=== PATIENT | male | born 1980 | race Caucasian/White ===

== ENCOUNTER 2021-04-12 17:23 | Emergency (ER) | payer OTHER, SELFPAY ==
--- NOTE | ~2021-04-12 | US_ITS ---
EXAMINATION: US VENOUS ULTRASOUND WITH DOPPLER LOWER EXTREMITY, RIGHT CLINICAL INFORMATION: Right leg edema and swelling COMPARISON: None TECHNIQUE: Ultrasound of the deep veins is performed from the hip to the calf with compression sonography and color and pulse Doppler assessment. Spectral analysis with color-flow imaging is performed. FINDINGS: There is normal venous compression and respiratory variation and augmented flow. The visualized common femoral vein, superficial femoral vein, profunda femoral vein, popliteal vein, and the trifurcation region shows no evidence of deep venous thrombosis. There is no significant popliteal fossa cyst. If the patient's symptoms persist, followup ultrasound in 5 days 7 days might be of value to exclude proximal propagation from a non-visualized calf vein. US/US venous duplex LE RT IMPRESSION: No DVT demonstrated in the right lower extremity.
[2021-04-12 18:06] VITALS: BP 154/111; PULSE 99; RESP 18; TEMP 36.7; O2SAT 96; BMI 25.7
--- NOTE | 2021-04-12 21:23 | ED_ITS ---
HPI - General Adult General Chief complaint: General Medical Stated complaint: Spontaneous ecchymoses, edema Time Seen by Provider: 04/12/21 20:54 Source: patient and family Limitations: no limitations History of Present Illness HPI narrative: 39-year-old male with past medical history of Merlin's disease, polycystic kidney disease is here today for complaining of right lower extremity swelling and bruising. Patient has a history of left kidney removal. Patient reports that his right lower extremity has been swollen in the last few days. He noticed today ecchymosis to 3rd 4th and 5th toe. Patient reports that he has been trying to keep his feet up as much as possible. Patient denies any other symptoms. Denies any SOB, presyncope, syncope, PND. Related Data Allergies Allergy/AdvReac Type Severity Reaction Status Date / Time amoxicillin Allergy Rash Verified 04/12/21 21:22 codeine AdvReac Nausea Verified 04/12/21 21:22 Review of Systems Review of Systems: Constitutional : No Weight loss, No Fever, No Chills, No Night Sweats, No Fatigue, No Malaise ENT/Mouth : No Hearing loss, No Ear Pain, No Nasal Congestion, No Sinus Pain, No Hoarseness, No sore throat, No Rhinorrhea, No Swallowing Difficulty Eyes: No Eye Pain, No Swelling, No Redness, No Foreign Body, No Discharge, No Vision Changes Cardiovascular : No Chest Pain, No SOB, No Dyspnea on Exertion, No Orthopnea, No Edema, No Palpitations Respiratory : No Cough, No Sputum, No Wheezing, No Smoke Exposure, No Dyspnea Gastrointestinal : No Nausea, No Vomiting, No Diarrhea, No Constipation, No abdominal Pain, No Hematochezia, No Melena Genitourinary : no irregular bleeding, No Dysuria, No Urinary Frequency, No Hematuria, No Urinary Incontinence, No Urgency, No Flank Pain, No Urinary Flow Changes, No Hesitancy Musculoskeletal : No joint pain, No Myalgias, Joint Swelling right foot swelling Skin : No Skin Lesions, No rash Neuro : No Weakness, No Numbness, No Paresthesias, No Loss of Consciousness, No Dizziness, No Headache Psych : No Anxiety/Panic, No Depression, No SI/HI/AH/VH, No Social Issues, Heme/Lymph: No Bruising, No Bleeding,No Lymphadenopathy Endocrine : No Polyuria, No Polydipsia, No Temperature Intolerance Yes all other systems are reviewed and are negative PMFSH Social History Social History Advance Directives: No Advance Directives Information Provided: No Physical Exam Vital Signs: Vital Signs: Last Vital Signs Temp 98.3 F 04/12/21 21:36 Pulse 84 04/12/21 21:36 Resp 18 04/12/21 21:36 BP 165/95 H 04/12/21 21:36 Pulse Ox 93 04/12/21 21:36 Body Mass Index 25.7 Const: General: healthy appearing, no acute distress and well developed Nutritional Appearance: well nourished Orientation/consciousness: patient oriented x3 Neck: Neck: Yes normal visual inspection, Yes full ROM and Yes trachea midline Thyroid: Thyroid normal Resp: Auscultation: clear to auscultation bilaterally Cardio: Rate: regular rate Rhythm: regular rhythm GI: Inspection: Yes normal to inspection and No distended Palpation (GI): No hepatosplenomegaly present Auscultation: normal bowel sounds Skin: General skin exam: elasticity normal, turgor normal and dry skin Neuro: General: patient oriented x3 Extrem: Right lower extremity: foot (Swelling ecchymosis) Course Course Course Narrative: 41-year-old male with past medical history of Merlin disease, polycystic kidney disease is here today for right lower extremity swelling. Patient is has a swelling for the last few days. Today he noticed ecchymosis to 3rd 4th and 5th toe. Denies any other symptoms. Will check basic lab work as well as due venous Doppler to check for DVT. Patient verbalizes understanding and is agreeable to plan of care he was given the opportunity to ask questions and all questions answered Reevaluation(s) Reevaluation #1: Patient just remember that he did injured his right foot. Labs negative 1st leukocytosis. Patient's creatinine is 1.84. He reports that he has creatinine is creatinine chronically high. Awaiting for ultrasound Reevaluation #2: Ultrasound negative for DVT. Patient elevated his feet the whole time he was here and his edema decreased. 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 Patient will be encouraged to keep his feet up Medical Decision Making Lab Data Result diagrams: 04/12/21 21:28 04/12/21 21:28 Labs: Lab Results 04/12/21 04/12/21 Range/Units 21:28 21:28 WBC 8.0 (4.8-10.8) X10*3/uL RBC 4.71 (4.60-5.80) X10*6/uL Hgb 13.7 L (14.0-18.0) g/dl Hct 41.9 L (42-52) % MCV 89.0 (80-98) fL MCH 29.1 (27.0-33.0) pg MCHC 32.7 (31.0-36.0) g/dl RDW 12.9 (11.0-16.0) % Plt Count 255 (160-400) X10*3/uL MPV 9.6 (9.4-12.4) fL Immature Gran % (Auto) 0.9 H (0.0-0.4) % Neut % (Auto) 69.5 (45-73) % Lymph % (Auto) 17.4 L (20-40) % [place] % (Auto) 7.2 (2-11) % Eos % (Auto) 4.5 H (0-4) % Baso % (Auto) 0.5 (0-2) % Lymph # (Auto) 1.4 (1.2-4.9) X10*3/uL [place] # (Auto) 0.6 (0.1-1.2) X10*3/uL Eos # (Auto) 0.4 (0.0-0.4) X10*3/uL Baso # (Auto) 0.0 (0.0-0.2) X10*3/uL Abs Immat Gran (auto) 0.07 H (0.00-0.03) X10*3/uL Absolute Neuts (auto) 5.6 (2.0-8.3) X10*3/uL Absolute Nucleated RBC 0.000 (0.0-0.012) X10*3/uL Nucleated RBC % (auto) 0.0 (0.0-0.2) /100WBC Sodium 142 (135-145) mmol/L Potassium 4.8 (3.3-5.1) mmol/L Chloride 104 (96-108) mmol/L Carbon Dioxide 31 H (22-29) mmol/L Anion Gap 12 (12-20) BUN 20 H (9-16) mg/dL Creatinine 1.84 H (0.5-1.4) mg/dL Estim Creat Clear Calc 43.3 Estimated GFR 40 Random Glucose 101 (60-115) mg/dL Calcium 10.1 (8.4-10.2) mg/dL Imaging Data Venous US: Radiologist's impression: VENOUS DOPPLER OF RIGHT EXTREMITY FINDINGS: There is normal venous compression and respiratory variation and augmented flow. The visualized common femoral vein, superficial femoral vein, profunda femoral vein, popliteal vein, and the trifurcation region shows no evidence of deep venous thrombosis. There is no significant popliteal fossa cyst. If the patient's symptoms persist, followup ultrasound in 5 days 7 days might be of value to exclude proximal propagation from a non-visualized calf vein. US/US venous duplex LE RT IMPRESSION: No DVT demonstrated in the right lower extremity. Discharge Plan Discharge Clinical Impression: Edema leg Patient Disposition: Home, Self-Care Instructions: Leg Edema (ED) Additional Instructions: You were seen here today for increase right lower extremity edema. All your lab work was negative for any acute findings. Your creatinine level was 1.84. Please follow-up with your awning maker and installer. Please make sure you keep your feet up. Please be careful when ambulating to avoid injuries. Please follow-up with your primary care provider in 2-3 days. You may return to emergency department if your symptoms will get worse or if you experience any other concerning symptoms.
--- NOTE | 2021-04-12 21:27 | PC.NURSE ---
PT SITTING IN W/C AND REFUSING TO GET IN BED OR CHG INTO GOWN. PT'S FAMILY WITH PACING AND C/O WE ARE NOT BEING SEEN MD AT BEDSIDE WITH PT.
[2021-04-12 21:33] LABS: MANUAL DIFF FLAG NO
[2021-04-12 21:36] VITALS: BP 165/95; PULSE 84; RESP 18; TEMP 36.8; O2SAT 93
[2021-04-12 21:37] LABS: Basophils Percent Auto 0.5 % (0-2); Eosinophils Absolute Auto 0.4 X10*3/uL (0.0-0.4); Eosinophils Percent Auto 4.5 % (0-4); Hematocrit 41.9 % (42-52); Hemoglobin 13.7 g/dl (14.0-18.0); Imm Gran Abs Auto 0.07 X10*3/uL (0.00-0.03); Imm Gran Pct Auto 0.9 % (0.0-0.4); Lymphocytes Absolute Auto 1.4 X10*3/uL (1.2-4.9); Lymphocytes Percent Auto 17.4 % (20-40); Mean Corpuscular HGB Conc 32.7 g/dl (31.0-36.0); Mean Corpuscular Hemoglobin 29.1 pg (27.0-33.0); Mean Platelet Volume 9.6 fL (9.4-12.4); Monocytes Absolute Auto 0.6 X10*3/uL (0.1-1.2); Monocytes Percent Auto 7.2 % (2-11); Neutrophils Absolute Auto 5.6 X10*3/uL (2.0-8.3); Neutrophils Percent Auto 69.5 % (45-73); Platelet Count 255 X10*3/uL (160-400); Red Blood Count 4.71 X10*6/uL (4.60-5.80); Red Cell Distribution Width 12.9 % (11.0-16.0)
[2021-04-12 22:03] LABS: Anion Gap 12 (12-20); Blood Urea Nitrogen 20 mg/dL (9-16); Calcium 10.1 mg/dL (8.4-10.2); Carbon Dioxide 31 mmol/L (22-29); Chloride 104 mmol/L (96-108); Creatinine Clr Calc Pharmacy 43.3; Estimated Glomerular Filt Rate 40; Glucose Random 101 mg/dL (60-115); Potassium 4.8 mmol/L (3.3-5.1); Sodium 142 mmol/L (135-145)
== END 2021-04-12 23:13 | disposition home or self-care (01) ==
PROVIDERS: Nurse Practitioner Family; Emergency Provider Internal Medicine; PCP Family Medicine
DX: R60.0 Localized edema (principal); Z90.5 Acquired absence of kidney
CPT/HCPCS: 36415; 80048; 85025; 93971; 99284